=== PATIENT | female | born 1970 | race Caucasian/White ===

== ENCOUNTER 2017-08-21 05:26 | Inpatient (IN) | payer OTHER ==
[~2017-08-21 05:26] MED LIST: ATORVASTATIN CA10 MG PO; CLONAZEPAM0.5 MG PO; GABAPENTIN800 MG PO; IBERSANTAN PO; NAPROXEN500 MG PO; PAXIL20 MG PO; PAXIL40 MG PO; SEROQ PO; TENCON 50-3251 EACH PO; TOPROL XL25 M1 PO; WELLBUTRIN SR150 MG PO; WELLBUTRIN XL300 MG PO
[2017-08-22] MEDS ORDERED: POLY119PG PO (16:25)
[2017-08-22] MEDS ORDERED: NEURONTIN800 MG PO (16:25)
[2017-08-22] MEDS ORDERED: PERCOCET 5-3251 EACH PO (16:25)
[2017-08-23] MEDS ORDERED: POLY119PG PO (10:35)
[2017-08-23] MEDS ORDERED: NEURONTIN300 MG PO (10:35)
[2017-08-23] MEDS ORDERED: PERCOCET 5-3251 EACH PO (10:35)
== END 2017-08-23 11:48 | disposition home or self-care (01) | DRG 742 ==
LOC: CIR.AMB 05:26 → O/R 18:14 → SURH 18:14
PROVIDERS: Obstetrics & Gynecology Gynecologic Oncology; Surgery
PROC: 0UT14ZZ Resection of Left Ovary, Percutaneous Endoscopic Approach (ICD-10-PCS; 2017-08-21)
PROC: 0DNW4ZZ Release Peritoneum, Percutaneous Endoscopic Approach (ICD-10-PCS; 2017-08-21)
PROC: 0WUF4JZ Supplement Abdominal Wall with Synthetic Substitute, Percutaneous Endoscopic Approach (ICD-10-PCS; 2017-08-21)
PROC: 0KXL0Z6 Transfer Left Abdomen Muscle, Transverse Rectus Abdominis Myocutaneous Flap, Open Approach (ICD-10-PCS; 2017-08-21)
PROC: 0KXK0Z6 Transfer Right Abdomen Muscle, Transverse Rectus Abdominis Myocutaneous Flap, Open Approach (ICD-10-PCS; 2017-08-21)
PROC: 0UT94ZZ Resection of Uterus, Percutaneous Endoscopic Approach (ICD-10-PCS; principal; 2017-08-21 09:15)
PROC: 0UT64ZZ Resection of Left Fallopian Tube, Percutaneous Endoscopic Approach (ICD-10-PCS; 2017-08-21 09:15)
DX: N83.12 Corpus luteum cyst of left ovary (principal); K43.0 Incisional hernia with obstruction, without gangrene; N80.0 Endometriosis of uterus; N72 Inflammatory disease of cervix uteri; N73.6 Female pelvic peritoneal adhesions (postinfective); K42.9 Umbilical hernia without obstruction or gangrene